=== PATIENT | female | born 1945 | race African-American/Black ===

== ENCOUNTER 2023-05-01 00:03 | Emergency (ER) | payer BC, OTHER ==
[~2023-05-01] VITALS: Ht 167.6 cm; Wt 91.0 kg
[2023-05-01 00:08] VITALS: O2SAT 99
[2023-05-01] MEDS ORDERED: ACETAMINOPHEN 325MG TABLET PO STA (00:14)
[2023-05-01 01:01] LABS: BASOPHILS % 0.6 % (0.0-2.0); EOSINOPHILS % 1.9 % (0.0-5.0); HEMATOCRIT. 43.3 % (36.0-48.0); HEMOGLOBIN. 14.4 g/dL (12.0-16.0); LYMPHOCYTES % 19.6 % (20.0-50.0); MEAN CORPUSCULAR HEMOGLOBIN 31.1 pg (28.0-32.0); MEAN CORPUSCULAR VOLUME 93.6 fL (81.0-99.0); MEAN PLATELET VOLUME 11.9 fl (7.4-10.4); MONOCYTES % 5.9 % (2.0-8.0); PLATELET 141 x1000/uL (130-400); RED BLOOD CELL COUNT 4.62 mill/uL (4.2-5.4); RED CELL DISTRIBUTION WIDTH 14.8 % (11.6-14.6)
[2023-05-01 01:08] LABS: CHLORIDE 109 mEq/L (98-107)
[2023-05-01 06:42] LABS: CLARITY URINE CLEAR (CLEAR); COLOR URINE YELLOW (YELLOW); KETONES URINE TRACE (NEGATIVE); LEUKOCYTE ESTERASE URINE NEGATIVE (NEGATIVE); NITRITE URINE NEGATIVE (NEGATIVE); OCCULT BLOOD URINE NEGATIVE (NEGATIVE); PH URINE 7.5 (4.5-8.0); PROTEIN URINE NEGATIVE (NEGATIVE); SPECIFIC GRAVITY URINE 1.018 (1.005-1.030); UROBILINOGEN URINE 0.2 E.U./dL (0.2-1.0)
[2023-05-01 07:51] VITALS: BP 171/80; PULSE 60; RESP 17; TEMP 99
== END 2023-05-01 07:53 | disposition home or self-care (01) ==
LOC: ER 00:03
DX: M54.50 Low back pain, unspecified (principal); I10 Essential (primary) hypertension; E78.00 Pure hypercholesterolemia, unspecified; Z88.2 Allergy status to sulfonamides
CPT/HCPCS: 36415; 74176; 80053; 81003; 85025; 99284

== ENCOUNTER 2024-10-12 06:27 | Emergency (ER) | payer OTHER | END 2024-10-12 06:30 | disposition left against medical advice (07) | LOC: ER 06:27 | DX: M54.9 Dorsalgia, unspecified (principal); Z53.21 Procedure and treatment not carried out due to patient leaving prior to being seen by health care provider ==